=== PATIENT | female | born 1980 | race Caucasian/White ===

== ENCOUNTER → 2020-10-01 | Day surgery (SDC) | payer MEDICAID ==
[~2020-10-01] VITALS: Ht 172.7 cm; Wt 90.0 kg
[~2020-10-01] MED LIST: CEFAZOLIN SODIUM 1000MG/VIAL ONE; DEXAMETHASONE 4MG/ML 1ML VIAL ONE; DEXT 5%/LR + PITOCIN 20UNITS/L 1,000 ML IV ONE; FENTANYL CITRATE/PF 50MCG/ML 2ML VIAL ONE; IBUPROFEN 600MG TABLET PO PRN; LIDOCAINE HCL/PF 1% 10 MG/ML 5ML VIAL ONE; MEPERIDINE HCL/PF 25MG/ML CPJ IV PRN; MIDAZOLAM HCL 2 MG/2 ML VIAL ONE; MORPHINE SULFATE 4 MG/ML CPJ (NOT FOR IM USE) IV ONE; ONDANSETRON HCL 4MG/2ML INJ ONE; PROPOFOL 200MG/20ML VIAL IV ONE; RHO(D) IMMUNE GLOBULIN 300 MCG/SYR IM ONE; ROCURONIUM BROMIDE 10MG/ML VIAL 5ML IV ONE; SUCCINYLCHOLINE CHLORIDE 200MG/10ML IV ONE
[2020-10-01 08:14] LABS: BASOPHILS % 0.5 % (0.0-2.0); EOSINOPHILS % 0.3 % (0.0-5.0); HEMATOCRIT. 38.5 % (36.0-48.0); HEMOGLOBIN. 12.7 g/dL (12.0-16.0); LYMPHOCYTES % 7.5 % (20.0-50.0); MEAN CORPUSCULAR HEMOGLOBIN 28.7 pg (28.0-32.0); MEAN CORPUSCULAR VOLUME 86.5 fL (81.0-99.0); MEAN PLATELET VOLUME 9.1 fl (7.4-10.4); MONOCYTES % 2.1 % (2.0-8.0); NEUTROPHILS % 89.6 % (40.0-76.0); PLATELET 276 x1000/uL (130-400); RED BLOOD CELL COUNT 4.45 mill/uL (4.2-5.4); RED CELL DISTRIBUTION WIDTH 13.8 % (11.6-14.6)
[2020-10-01 08:19] LABS: CHLORIDE 104 mEq/L (98-107)
[2020-10-01 08:24] LABS: PROTHROMBIN TIME 10.5 sec (9.6-11.0)
[2020-10-01 08:54] LABS: B-HCG QUANTITATIVE 38167 mIU/mL (<3)
[2020-10-01 12:07] VITALS: BP 136/75
== END | disposition home or self-care (01) ==
LOC: ER 08:02 → OR 10:30
PROVIDERS: ATTEND Obstetrics & Gynecology
DX: O03.4 Incomplete spontaneous abortion without complication (principal); N93.9 Abnormal uterine and vaginal bleeding, unspecified; E66.9 Obesity, unspecified; Z79.899 Other long term (current) drug therapy; Z98.890 Other specified postprocedural states; Z20.822 Contact with and (suspected) exposure to COVID-19
CPT/HCPCS: 36415; 59812; 76801; 80053; 84702; 85025; 85610; 86850; 86900; 86901; 87426; 96365; 96375; 99284; J0330; J0690; J1100; J2175; J2250; J2270; J2405; J2590; J2704; J3010; J3490; 99291